=== PATIENT | female | born 1985 | race Caucasian/White ===

== ENCOUNTER → 2017-10-16 | Outpatient (CLI) | payer OTHER ==
[2017-10-16 12:23] LABS: Basophils # (A) 0.1 k/uL (0-0.2); Basophils % (A) 0 %; Eosinophils # (A) 0.1 k/uL (0-0.7); Eosinophils % (A) 1 %; HGB 13.1 gm/dL (11.4-16.0); Lymphocytes % (A) 32 %; MCH 28.8 pg (25.0-35.0); MCHC 30.5 g/dL (31.0-37.0); MCV 94.6 fL (80.0-100.0); Mean Platelet Volume 6.4; Monocytes # (A) 0.5 k/uL (0-1.0); Monocytes % (A) 4 %; Neutrophils # (A) 7.7 k/uL (1.3-7.7); Neutrophils % (A) 61 %; Platelet Count 477 k/uL (150-450); RBC 4.54 m/uL (3.80-5.40); RDW 13.3 % (11.5-15.5); WBC 12.6 k/uL (3.8-10.6)
[2017-10-16 12:27] LABS: ALT 28 U/L (9-52); AST 17 U/L (14-36); Alkaline Phosphatase 84 U/L (38-126); Anion Gap 10 mmol/L; Blood Urea Nitrogen 18 mg/dL (7-17); Calcium 9.4 mg/dL (8.4-10.2); Carbon Dioxide 28 mmol/L (22-30); Chloride 102 mmol/L (98-107); Cholesterol 210 mg/dL (<200); Glucose 76 mg/dL (74-99); HDL Cholesterol 47 mg/dL (40-60); LDL Cholesterol,Calculated 142 mg/dL (0-99); Potassium 4.8 mmol/L (3.5-5.1); Sodium 140 mmol/L (137-145); Total Bilirubin 0.4 mg/dL (0.2-1.3); Total Protein 7.2 g/dL (6.3-8.2); Triglycerides 103 mg/dL (<150)
[2017-10-16 12:43] LABS: T4, Free (Free Thyroxine) 0.77 ng/dL (0.78-2.19)
== END | disposition home or self-care (01) ==
LOC: LABWHC1 11:27
PROVIDERS: ATTEND Nurse Practitioner Primary Care
DX: Z00.01 Encounter for general adult medical examination with abnormal findings (principal); E03.9 Hypothyroidism, unspecified; E55.9 Vitamin D deficiency, unspecified
CPT/HCPCS: 36415; 80053; 80061; 82306; 84439; 84443; 84481; 85025

== ENCOUNTER 2017-10-26 19:37 | Emergency (ER) | payer OTHER ==
[2017-10-26 20:06] VITALS: RESP 18; TEMP 98.4
[2017-10-26 20:36] LABS: Basophils % (A) 0 %; Eosinophils % (A) 0 %; HCT 39.2 % (34.0-46.0); HGB 12.7 gm/dL (11.4-16.0); Lymphocytes % (A) 10 %; MCH 29.4 pg (25.0-35.0); MCHC 32.2 g/dL (31.0-37.0); MCV 91.2 fL (80.0-100.0); Mean Platelet Volume 6.6; Monocytes # (A) 0.3 k/uL (0-1.0); Monocytes % (A) 2 %; Neutrophils # (A) 9.2 k/uL (1.3-7.7); Neutrophils % (A) 87 %; Platelet Count 416 k/uL (150-450); RDW 13.9 % (11.5-15.5); WBC 10.6 k/uL (3.8-10.6)
[2017-10-26 20:47] LABS: ALT 34 U/L (9-52); AST 25 U/L (14-36); Albumin 4.1 g/dL (3.5-5.0); Alkaline Phosphatase 96 U/L (38-126); Amylase 49 U/L (30-110); Anion Gap 14 mmol/L; Blood Urea Nitrogen 15 mg/dL (7-17); Calcium 9.2 mg/dL (8.4-10.2); Carbon Dioxide 22 mmol/L (22-30); Chloride 106 mmol/L (98-107); Glucose 105 mg/dL (74-99); Lipase 47 U/L (23-300); Potassium 4.1 mmol/L (3.5-5.1); Sodium 142 mmol/L (137-145); Total Bilirubin 0.4 mg/dL (0.2-1.3); Total Protein 7.1 g/dL (6.3-8.2)
[2017-10-26] MEDS ORDERED: ONDANSETRON 4 MG/2 ML VIAL IVP STA (22:01)
[2017-10-26] MEDS ORDERED: SODIUM CHLORIDE 0.9% 1,000 ML IV ONE (22:01)
[2017-10-26 22:26] LABS: Amorphous Sediment,Urine Rare /hpf; Appearance,Urine Cloudy (Clear); Bilirubin,Urine Negative (Negative); Blood,Urine Negative (Negative); Color,Urine Yellow; Glucose,Urine (UA) Negative (Negative); Ketones,Urine 2+ (Negative); Leukocyte Esterase,Urine Trace (Negative); Mucus,Urine Many /hpf; Nitrite,Urine Negative (Negative); PH, Urine 5.5 (5.0-8.0); Protein,Urine 1+ (Negative); RBC,Urine 2 /hpf (0-5); Specific Gravity,Urine 1.032 (1.001-1.035); Squamous Epithelial Cell,Urine 20 /hpf (0-4); WBC,Urine 7 /hpf (0-5)
--- NOTE | 2017-10-26 23:57 | XR ---
EXAMINATION TYPE: XR abdomen acute w cxr DATE OF EXAM: 10/26/2017 COMPARISON: NONE HISTORY: Nausea and vomiting TECHNIQUE: 4 views FINDINGS: Heart and mediastinum are normal. Lungs are clear. Diaphragm is normal. Bowel gas pattern is normal. There is no sign of intestinal obstruction or pneumoperitoneum. Fecal pattern is normal. There are no pathologic calcifications over the kidneys. IMPRESSION: Nonacute abdomen.
[2017-10-27] MEDS ORDERED: ONDANSETRON ODT 4 MG TAB PO STA (00:19)
--- NOTE | 2017-10-27 00:19 | ED ---
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 Denies any headaches no chest pain or shortness of breath does have some abdominal cramps no frequency urgency dysuria he is system is unremarkable otherwise - Related Data Home Medications Medication Instructions Recorded Confirmed FLUoxetine HCL [PROzac] 20 mg PO DAILY 10/26/17 10/26/17 Previous Rx's Medication Instructions Recorded Metoclopramide [Reglan] 10 mg PO ACHS #12 tab 10/27/17 Allergies Allergy/AdvReac Type Severity Reaction Status Date / Time acetaminophen [From Vicodin] AdvReac Vomiting Verified 10/26/17 22:10 hydrocodone [From Vicodin] AdvReac Vomiting Verified 10/26/17 22:10 Review of Systems ROS Statement: Those systems with pertinent positive or pertinent negative responses have been documented in the HPI. ROS Other: All systems not noted in ROS Statement are negative. Past Medical History Additional Past Medical History / Comment(s): hypothyroidism, Migraine History of Any Multi-Drug Resistant Organisms: None Reported Past Surgical History: No Surgical Hx Reported Past Psychological History: Anxiety Smoking Status: Current every day smoker Past Alcohol Use History: Rare Past Drug Use History: None Reported General Exam - General Exam Comments Initial Comments: General: The patient is awake and alert, in no distress, and does not appear acutely ill. Skin: Skin is warm and dry and no rashes or lesions are noted. Eye: Pupils are equal, round and reactive to light, extra-ocular movements are intact; there is normal conjunctiva bilaterally. Ears, nose, mouth and throat: There are moist mucous membranes and no oral lesions. Neck: The neck is supple, there is no tenderness or JVD. Cardiovascular: There is a regular rate and rhythm. No murmur, rub or gallop is appreciated. Respiratory: To auscultation bilateral, no wheezing no rhonchi no distress respiratory ronquillo noticed Gastrointestinal: Soft nontender positive bowel sounds no guarding no rebounds Back: There is no tenderness to palpation in the midline. There is no obvious deformity. Musculoskeletal: Normal ROM, no tenderness, There is no pedal edema. There is no calf tenderness or swelling. No cords were appreciated. Neurological: CN II-XII intact, Cranial nerves III through XII are intact. There are no obvious motor or sensory deficits. Coordination appears grossly intact. Speech is normal. Psychiatric: Cooperative, appropriate mood & affect, normal judgment. Limitations: no limitations Course Vital Signs 10/26/17 20:04 Temperature 98.4 F Pulse Rate 96 Respiratory 18 Rate Blood Pressure 107/61 O2 Sat by Pulse 96 Oximetry She is reassessed at term 12:15, CBC, compressive metabolic mom metabolic panel is unremarkable imaging of the abdomen is also unremarkable, she feels better she had a 2 L of fluids she feels hungry she wanted try fluid and she was to go home Medical Decision Making - Lab Data Result diagrams: 10/26/17 20:21 10/26/17 20:21 Lab Results 10/26/17 10/26/17 10/26/17 Range/Units 20:21 20:21 22:11 WBC 10.6 (3.8-10.6) k/uL RBC 4.30 (3.80-5.40) m/uL Hgb 12.7 (11.4-16.0) gm/dL Hct 39.2 (34.0-46.0) % MCV 91.2 (80.0-100.0) fL MCH 29.4 (25.0-35.0) pg MCHC 32.2 (31.0-37.0) g/dL RDW 13.9 (11.5-15.5) % Plt Count 416 (150-450) k/uL Neutrophils % 87 % Lymphocytes % 10 % Monocytes % 2 % Eosinophils % 0 % Basophils % 0 % Neutrophils # 9.2 H (1.3-7.7) k/uL Lymphocytes # 1.0 (1.0-4.8) k/uL Monocytes # 0.3 (0-1.0) k/uL Eosinophils # 0.0 (0-0.7) k/uL Basophils # 0.0 (0-0.2) k/uL Sodium 142 (137-145) mmol/L Potassium 4.1 (3.5-5.1) mmol/L Chloride 106 (98-107) mmol/L Carbon Dioxide 22 (22-30) mmol/L Anion Gap 14 mmol/L BUN 15 (7-17) mg/dL Creatinine 0.66 (0.52-1.04) mg/dL Est GFR (CKD-EPI)AfAm >90 (>60 ml/min/1.73 sqM) Est GFR (CKD-EPI)NonAf >90 (>60 ml/min/1.73 sqM) Glucose 105 H (74-99) mg/dL Calcium 9.2 (8.4-10.2) mg/dL Total Bilirubin 0.4 (0.2-1.3) mg/dL AST 25 (14-36) U/L ALT 34 (9-52) U/L Alkaline Phosphatase 96 (38-126) U/L Total Protein 7.1 (6.3-8.2) g/dL Albumin 4.1 (3.5-5.0) g/dL Amylase 49 (30-110) U/L Lipase 47 (23-300) U/L Urine Color Urine Appearance (Clear) Urine pH (5.0-8.0) Ur Specific [place] (1.001-1.035) Urine Protein (Negative) Urine Glucose (UA) (Negative) Urine Ketones (Negative) Urine Blood (Negative) Urine Nitrite (Negative) Urine Bilirubin (Negative) Urine Urobilinogen (<2.0) mg/dL Ur Leukocyte Esterase (Negative) Urine RBC (0-5) /hpf Urine WBC (0-5) /hpf Ur Squamous Epith Cells (0-4) /hpf Amorphous Sediment (None) /hpf Urine Mucus (None) /hpf Urine HCG, Qual Not Detected (Not Detectd) 10/26/17 Range/Units 22:11 WBC (3.8-10.6) k/uL RBC (3.80-5.40) m/uL Hgb (11.4-16.0) gm/dL Hct (34.0-46.0) % MCV (80.0-100.0) fL MCH (25.0-35.0) pg MCHC (31.0-37.0) g/dL RDW (11.5-15.5) % Plt Count (150-450) k/uL Neutrophils % % Lymphocytes % % Monocytes % % Eosinophils % % Basophils % % Neutrophils # (1.3-7.7) k/uL Lymphocytes # (1.0-4.8) k/uL Monocytes # (0-1.0) k/uL Eosinophils # (0-0.7) k/uL Basophils # (0-0.2) k/uL Sodium (137-145) mmol/L Potassium (3.5-5.1) mmol/L Chloride (98-107) mmol/L Carbon Dioxide (22-30) mmol/L Anion Gap mmol/L BUN (7-17) mg/dL Creatinine (0.52-1.04) mg/dL Est GFR (CKD-EPI)AfAm (>60 ml/min/1.73 sqM) Est GFR (CKD-EPI)NonAf (>60 ml/min/1.73 sqM) Glucose (74-99) mg/dL Calcium (8.4-10.2) mg/dL Total Bilirubin (0.2-1.3) mg/dL AST (14-36) U/L ALT (9-52) U/L Alkaline Phosphatase (38-126) U/L Total Protein (6.3-8.2) g/dL Albumin (3.5-5.0) g/dL Amylase (30-110) U/L Lipase (23-300) U/L Urine Color Yellow Urine Appearance Cloudy H (Clear) Urine pH 5.5 (5.0-8.0) Ur Specific [place] 1.032 (1.001-1.035) Urine Protein 1+ H (Negative) Urine Glucose (UA) Negative (Negative) Urine Ketones 2+ H (Negative) Urine Blood Negative (Negative) Urine Nitrite Negative (Negative) Urine Bilirubin Negative (Negative) Urine Urobilinogen 2.0 (<2.0) mg/dL Ur Leukocyte Esterase Trace H (Negative) Urine RBC 2 (0-5) /hpf Urine WBC 7 H (0-5) /hpf Ur Squamous Epith Cells 20 H (0-4) /hpf Amorphous Sediment Rare H (None) /hpf Urine Mucus Many H (None) /hpf Urine HCG, Qual (Not Detectd) Disposition Clinical Impression: Gastroenteritis Disposition: HOME SELF-CARE Condition: Good Instructions: Acute Nausea and Vomiting (ED) Prescriptions: Metoclopramide [Reglan] 10 mg PO ACHS #12 tab Referrals: Malini Martinez MD [Primary Care Provider] - 1-2 days
[2017-10-27 00:25] VITALS: BP 122/60; PULSE 75
== END 2017-10-27 01:14 | disposition home or self-care (01) ==
LOC: EC 19:37
DX: K52.9 Noninfective gastroenteritis and colitis, unspecified (principal); F41.9 Anxiety disorder, unspecified; F17.200 Nicotine dependence, unspecified, uncomplicated; Z79.899 Other long term (current) drug therapy; Z88.5 Allergy status to narcotic agent
CPT/HCPCS: 36415; 80053; 82150; 83690; 85025; 81001; 81025; 74022; 99284; 96374; 96361 ×3; J2405

== ENCOUNTER → 2018-01-28 | Outpatient (CLI) | payer OTHER ==
[2018-01-28 15:31] LABS: T4, Free (Free Thyroxine) 0.82 ng/dL (0.78-2.19)
== END | disposition home or self-care (01) ==
LOC: LABWHC1 14:30
PROVIDERS: ATTEND Nurse Practitioner Primary Care
DX: E03.9 Hypothyroidism, unspecified (principal)
CPT/HCPCS: 36415; 82306; 84439; 84443; 84481

== ENCOUNTER 2019-05-29 14:46 | Emergency (ER) | payer OTHER ==
[2019-05-29 15:06] VITALS: RESP 16; TEMP 97.9
[2019-05-29] MEDS ORDERED: KETOROLAC 30 MG/ML 1 ML VIAL IVP STA (15:55)
[2019-05-29] MEDS ORDERED: ONDANSETRON 4 MG/2 ML VIAL IVP STA (15:55)
[2019-05-29] MEDS ORDERED: diphenhydrAMINE 50 MG/ML 1 ML VIAL IVP STA (15:55)
[2019-05-29] MEDS ORDERED: SODIUM CHLORIDE 0.9% 1,000 ML IV STA (15:56)
--- NOTE | 2019-05-29 16:40 | ED ---
Headache HPI - General Chief Complaint: Headache Stated Complaint: Headache Time Seen by Provider: 05/29/19 15:39 Mode of arrival: ambulatory Limitations: no limitations - History of Present Illness Initial Comments: Patient is a 34-year-old female presenting to emergency Department with complaints of migraine 5 days. Patient has history of migraines and states sometimes they improve with Excedrin however sometimes she does come to the ER for medication. Patient states she has been trying to take Excedrin at home without relief of symptoms. Patient developing nausea yesterday. Patient denies fever, chills, vomiting, diarrhea. Patient denies blurry vision. Admits to photophobia. Patient states this migraine feels similar to her past migraines. Patient denies any trauma or falls. Patient has no other complaints at this time. Upon arrival to ER, vital signs are stable. - Related Data Home Medications Medication Instructions Recorded Confirmed Aspirin/Acetaminophen/Caffeine 1 - 2 tab PO DAILY PRN 05/29/19 05/29/19 [Excedrin Migraine Caplet] FLUoxetine HCL 40 mg PO DAILY 05/29/19 05/29/19 Allergies Allergy/AdvReac Type Severity Reaction Status Date / Time acetaminophen [From Vicodin] AdvReac Vomiting Verified 05/29/19 15:36 hydrocodone [From Vicodin] AdvReac Vomiting Verified 05/29/19 15:36 Review of Systems ROS Statement: Those systems with pertinent positive or pertinent negative responses have been documented in the HPI. ROS Other: All systems not noted in ROS Statement are negative. Past Medical History Additional Past Medical History / Comment(s): hypothyroidism, Migraine History of Any Multi-Drug Resistant Organisms: None Reported Past Surgical History: No Surgical Hx Reported Past Psychological History: Anxiety Smoking Status: Former smoker Past Alcohol Use History: Rare Past Drug Use History: None Reported General Exam - General Exam Comments Initial Comments: GENERAL: Well-appearing, well-nourished and in no acute distress. HEAD: Atraumatic, normocephalic. EYES: Pupils equal round and reactive to light, extraocular movements intact, sclera anicteric, conjunctiva are normal. Positive photophobia ENT: TMs normal, nares patent, oropharynx clear without exudates. Moist mucous membranes. NECK: Normal range of motion, supple without lymphadenopathy or JVD. LUNGS: Breath sounds clear to auscultation bilaterally and equal. No wheezes rales or rhonchi. HEART: Regular rate and rhythm without murmurs, rubs or gallops. ABDOMEN: Soft, nontender, normoactive bowel sounds. No guarding, no rebound. No masses appreciated. : Deferred EXTREMITIES: Normal range of motion, no pitting or edema. No clubbing or cyanosis. NEUROLOGICAL: Cranial nerves II through XII grossly intact. Normal speech, normal gait. PSYCH: Normal mood, normal affect. SKIN: Warm, Dry, normal turgor, no rashes or lesions noted. Limitations: no limitations Course Vital Signs 05/29/19 15:02 Temperature 97.9 F Pulse Rate 77 Respiratory 16 Rate Blood Pressure 124/80 O2 Sat by Pulse 98 Oximetry Medical Decision Making - Medical Decision Making Patient is a 34-year-old female presenting with a migraine 5 days. Patient has history of migraines and this is similar nature. No alarm symptoms. Patient was given Toradol, Zofran, Benadryl and a liter of fluids. Patient reports improvement in symptoms and is requesting to go home. Patient will follow up with her PCP if symptoms persist. Patient stable for discharge at this time. Return parameters were discussed with the patient she verbalized understanding. Case discussed with Dr. Ramos. Disposition Clinical Impression: Migraine headache Disposition: HOME SELF-CARE Condition: Stable Instructions (If sedation given, give patient instructions): Acute Headache (ED) Additional Instructions: Please return to the Emergency Department if symptoms worsen or any other concerns. Continue to increase fluid intake. Follow-up with PCP as needed. Is patient prescribed a controlled substance at d/c from ED?: No Referrals: None,Stated [Primary Care Provider] - 1-2 days
[2019-05-29 17:36] VITALS: BP 134/76; PULSE 16
== END 2019-05-29 17:35 | disposition home or self-care (01) ==
LOC: EC 14:46
DX: G43.909 Migraine, unspecified, not intractable, without status migrainosus (principal); F41.9 Anxiety disorder, unspecified; Z87.891 Personal history of nicotine dependence; Z88.5 Allergy status to narcotic agent; Z88.6 Allergy status to analgesic agent; Z79.899 Other long term (current) drug therapy
CPT/HCPCS: 99283; 96374; 96375 ×2; 96361; J1200; J2405; J1885

== ENCOUNTER → 2019-12-19 | Outpatient (CLI) | payer OTHER ==
--- NOTE | 2019-12-20 07:58 | MM ---
Reason for exam: clinical finding. Baseline mammogram. History: Family history of breast cancer in maternal grandmother. Indicated problem(s): pain in the right breast. Physical Findings: Nurse did not find any significant physical abnormalities on exam. MG 3D Diag Mammo W/Cad LAYNE Bilateral CC, MLO, and XCCL view(s) were taken. The breast tissue is heterogeneously dense. This may lower the sensitivity of mammography. No suspicious abnormality. Right intramammary lymph node with a fatty notch seen. These results were verbally communicated with the patient and result sheet given to the patient on 12/19/19. ASSESSMENT: Incomplete: need additional imaging evaluation, BI-RAD 0 RECOMMENDATION: Ultrasound of the right breast. (area of pain)
--- NOTE | 2019-12-20 08:00 | USB ---
Reason for exam: additional evaluation requested from abnormal screening. History: Family history of breast cancer in maternal grandmother. US Breast Limited RT Technologist: Christy Tobar Right limited breast ultrasound including focal area of concern, retroareolar and axilla demonstrates retroareolar ducts at 9 o'clock and a 1.0 x 0.8 x 0.6cm oval lymph nodes as seen on mammogram, nonenlarged at 9 o'clock. These results were verbally communicated with the patient and result sheet given to the patient on 12/19/19. ASSESSMENT: Benign, BI-RAD 2 RECOMMENDATION: Routine screening mammogram of both breasts at age 40. (or sooner if clinically indicated) Manage on a clinical basis with regard to right breast pain.
== END | disposition home or self-care (01) ==
LOC: RADMAMWWP 08:59
PROVIDERS: ATTEND Obstetrics & Gynecology
DX: R92.8 Other abnormal and inconclusive findings on diagnostic imaging of breast (principal); N64.4 Mastodynia
CPT/HCPCS: 77066; 76642; G0279; 77062

== ENCOUNTER → 2020-01-15 | Outpatient (CLI) | payer OTHER ==
--- NOTE | 2020-01-15 15:02 | US ---
EXAMINATION TYPE: US thyroid st tissue head/neck DATE OF EXAM: 01/15/2020 COMPARISON: NONE CLINICAL HISTORY: 34-year-old female E04.1 Thyroid nodule.Hypothyroidism on meds for years. TECHNIQUE: Multiple sonographic images of the thyroid gland are obtained. FINDINGS: GLAND SIZE: Right Lobe: 6.3 x 2.5 x 2.1 cm Overall Parenchyma: heterogenous Left Lobe: 5.9 x 2.3 x 2.5 cm Overall Parenchyma: heterogeneous Isthmus Thickness: 1.1 cm NODULES RIGHT: # of nodules measured on right: 0 LEFT: # of nodules measured on left: 0 ISTHMUS: # of nodules measured in the isthmus: 0 Nodule from previous not seen on today's study. Bilateral neck scanned, no evidence of lymphadenopathy. IMPRESSION: Thyromegaly with very heterogeneous glandular parenchyma. Given the extensive heterogeneity, no discr ete nodule is clearly identified. The previously seen 9 mm isthmic nodule is not reproduced on the pr esent exam.
[2020-01-15 15:48] LABS: T4, Free (Free Thyroxine) 0.81 ng/dL (0.78-2.19)
== END | disposition home or self-care (01) ==
LOC: RADUSWWP 14:20
PROVIDERS: ATTEND Obstetrics & Gynecology
DX: E01.0 Iodine-deficiency related diffuse (endemic) goiter (principal); Z13.29 Encounter for screening for other suspected endocrine disorder
CPT/HCPCS: 76536; 84439; 84443; 84479

== ENCOUNTER 2020-06-06 20:13 | Emergency (ER) | payer OTHER ==
[2020-06-06 20:21] VITALS: RESP 18
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
[2020-06-06 22:11] VITALS: BP 137/67; PULSE 77; TEMP 98
== END 2020-06-06 22:11 | disposition home or self-care (01) ==
LOC: EC 20:13
DX: S13.9XXA Sprain of joints and ligaments of unspecified parts of neck, initial encounter (principal); M25.512 Pain in left shoulder; M54.9 Dorsalgia, unspecified; G43.909 Migraine, unspecified, not intractable, without status migrainosus; F41.9 Anxiety disorder, unspecified; Z79.899 Other long term (current) drug therapy; Z88.6 Allergy status to analgesic agent; Z88.5 Allergy status to narcotic agent; V59.9XXA Occupant (driver) (passenger) of pick-up truck or van injured in unspecified traffic accident, initial encounter; Y92.410 Unspecified street and highway as the place of occurrence of the external cause
CPT/HCPCS: 71046; 72050; 72072; 99284

== ENCOUNTER 2023-04-15 15:17 | Emergency (ER) | payer OTHER ==
[2023-04-15] MEDS ORDERED: PANTOPRAZOLE 40 MG/10 ML VIAL IVP STA (15:30)
[2023-04-15] MEDS ORDERED: ONDANSETRON 4 MG/2 ML VIAL IVP STA (15:30)
[2023-04-15] MEDS ORDERED: SODIUM CHLORIDE 0.9% 1,000 ML IV STA (15:30)
--- NOTE | 2023-04-15 15:41 | ED ---
General Adult HPI - General Stated complaint: ABDOMINAL PAIN Time Seen by Provider: 04/15/23 15:25 Source: patient, RN notes reviewed, old records reviewed - History of Present Illness Initial comments: Patient is a 38-year-old female with past medical history for thyroid dysfunction and presents emergency Department complaining of sudden onset abdominal pain. States it is epigastric in nature with some radiation over to the left side of her upper abdomen and on the left flank. States she has not had these pains before. No one else has this pain. Pain started approximately an hour and half prior to arrival. Nurses nausea but no emesis. Denies any diarrhea or constipation. Denies any vaginal discharge or bleeding. Denies any urinary complaints. Patient does endorse not having a period for the last 2 weeks. Is uncertain if she is . Denies any fevers, chills, cough, chest pain. Has no other acute complaints at this time. Patient was given fentanyl by EMS on the way here. Presents for further evaluation. No history of abdominal surgeries. - Related Data Home Medications Medication Instructions Recorded Confirmed Ibuprofen [Motrin] 600 mg PO Q8HR PRN 04/15/23 04/15/23 Levothyroxine Sodium [Synthroid] 175 mcg PO DAILY 04/15/23 04/15/23 PARoxetine HCL 40 mg PO DAILY 04/15/23 04/15/23 SUMAtriptan succinate [Imitrex] 50 mg PO BID PRN 04/15/23 04/15/23 busPIRone HCL [Buspirone HCl] 15 mg PO BID 04/15/23 04/15/23 Allergies Allergy/AdvReac Type Severity Reaction Status Date / Time acetaminophen [From Vicodin] AdvReac Vomiting Verified 04/15/23 15:43 hydrocodone [From Vicodin] AdvReac Vomiting Verified 04/15/23 15:43 Review of Systems ROS Statement: Those systems with pertinent positive or pertinent negative responses have been documented in the HPI. Review of Systems: CONST: Denies fever EYES: Denies blurry vision ENT: Denies nasal congestion C/V: Denies Chest pain RESP: Denies shortness of breath GI: Endorses abdominal pain : Denies dysuria SKIN: Denies rash. MSK: Denies joint pain. NEURO: Denies headache ROS Other: All systems not noted in ROS Statement are negative. Past Medical History Additional Past Medical History / Comment(s): hypothyroidism, Migraine History of Any Multi-Drug Resistant Organisms: None Reported Past Surgical History: No Surgical Hx Reported Past Psychological History: Anxiety Past Alcohol Use History: Rare Past Drug Use History: None Reported General Exam - General Exam Comments Initial Comments: General: Appears in no acute distress. HEAD: Normal with no signs of head trauma. EYES: PERRLA, EOMI, conjunctiva normal, no discharge. ENT: Hearing grossly intact, normal oropharynx. RESPIRATORY: Clear breath sounds bilaterally. No wheezes, rales, or rhonchi. C/V: Regular rate and rhythm. S1 and S2 auscultated, no edema, peripheral pulses 2+ and intact throughout ABD: Abdomen soft, nondistended. Tender to palpation mildly in the epigastric and left upper quadrant with some left flank tenderness as well. No CVA tenderness to percussion. No guarding. No peritoneal signs. No rebound tenderness. EXT: Normal range of motion, no obvious deformity SKIN: No rashes or lesions observed on exposed skin. NEURO: Alert and oriented 4. Course Vital Signs 04/15/23 04/15/23 04/15/23 15:32 16:06 18:26 Temperature 98.3 F Pulse Rate 68 63 66 Respiratory 18 18 18 Rate Blood Pressure 113/74 113/74 131/83 O2 Sat by Pulse 98 99 98 Oximetry 04/15/23 19:27 Temperature Pulse Rate 66 Respiratory 18 Rate Blood Pressure 110/69 O2 Sat by Pulse 96 Oximetry Medical Decision Making - Medical Decision Making Was pt. sent in by a medical professional or institution (, PA, RODENT CONTROL WORKER, urgent care, hospital, or alf...) When possible be specific @ -No Did you speak to anyone other than the patient for history (EMS, parent, family, police, friend...)? What history was obtained from this source @ -No Did you review nursing and triage notes (agree or disagree)? Why? @ -I reviewed and agree with nursing and triage notes Were old charts reviewed (outside hosp., previous admission, EMS record, old EKG, old radiological studies, urgent care reports/EKG's, alf records)? Report findings @ -No old charts were reviewed Differential Diagnosis (chest pain, altered mental status, abdominal pain women, abdominal pain men, vaginal bleeding, weakness, fever, dyspnea, syncope, headache, dizziness, GI bleed, back pain, seizure, CVA, palpatations, mental health, musculoskeletal)? @ -Differential Abdominal Pain Women: Appendicitis, Cholecystitis, diverticulosis, ischemic bowel, pancreatitis, hepatitis, UTI, gastroenteritis, AAA, incarcerated hernia, bowel obstruction, co nstipation, inflammatory bowel, hepatitis, peptic ulcer disease, splenic infarction, perforated viscus, vulvitis, ovarian torsion, PID, kidney stone, placenta abruption, this is not meant to be an all-inclusive list EKG interpreted by me (3pts min.). @ -As above X-rays interpreted by me (1pt min.). @ -Chest x-ray reveals no obvious acute cardiopulmonary process. CT interpreted by me (1pt min.). @ - CT abdomen and pelvis reveals findings concerning for mesenteric colitis as well as uncomplicated cholelithiasis. U/S interpreted by me (1pt. min.). @ -Patient's abdominal ultrasound revealed uncomplicated cholelithiasis as well as no evidence of nephrolithiasis or ureterolithiasis. What testing was considered but not performed or refused? (CT, X-rays, U/S, labs)? Why? @ -None What meds were considered but not given or refused? Why? @ -Considered pain medications on initial evaluation however patient states pain is under control the medications provided by EMS. We will continue to monitor. eventually did readminister pain meds. Did you discuss the management of the patient with other professionals (professionals i.e. , PA, RODENT CONTROL WORKER, lab, RT, psych nurse, social service agency director, short piece handler, teacher, space operations officer, briefcase sewer)? Give summary @ -No Was smoking cessation discussed for >3mins.? @ -No Was critical care preformed (if so, how long)? @ -No Were there social determinants of health that impacted care today? How? (Homelessness, low income, unemployed, alcoholism, drug addiction, transportation, low edu. Level, literacy, decrease access to med. care, custodial, rehab)? @ -No Was there de-escalation of care discussed even if they declined (Discuss DNR or withdrawal of care, Hospice)? DNR status @ -No What co-morbidities impacted this encounter? (DM, HTN, Smoking, COPD, CAD, Cancer, CVA, ARF, Chemo, Hep., AIDS, mental health diagnosis, sleep apnea, mo rbid obesity)? @ -None Was patient admitted / discharged? Hospital course, mention meds given and route, prescriptions, significant lab abnormalities, going to OR and other pertinent info. @ -Based on the patient's presentation and physical exam, patient is a 38-year-old female who presents with sudden onset epigastric and left-sided abdominal pain. Nausea associated with it. Primary concern is for intra- abdominal etiology. Screening EKG will be obtained. She also missed her period. We will obtain abdominal laboratory studies. Patient does not require pain medications at this time, and declines them.. She will receive an IV fluid bolus as well as Zofran and Protonix. We will also obtain a chest x-ray as well as ultrasounds of the gallbladder as well as kidneys to begin. Patient was in agreement this plan. Vital signs within acceptable limits. Patient's imaging with ultrasound x-ray initially revealed uncomplicated cholelithiasis with no other findings. Labs returned remarkable for mild leukocytosis of 12 which is likely reactive. She is not . Urine shows blood but no other findings. Remainder the labs within acceptable limits. On reevaluation come patient's son pain. She was administered fentanyl and we discussed we will obtain CT imaging at this time. CT returned showing mesenteric panniculitis. I discussed the results with the patient. Treatment is supportive and follow-up. She'll be given GI to follow up with as well as her PCP. She was in agreement with this plan. She'll be provided with starter packs for Zofran and Tylenol threes for home. I instructed the patient to follow up with their PCP in the next 1-3 days. I provided contact information for follow up with gastroenterology. I explained that the patient should return to the emergency department if they experience any worsening symptoms. Strict return precautions were discussed with the shubham love. The patient expressed understanding of these instructions. I answered all questions that the patient had. The patient was discharged home in fair condition with their prescriptions and follow up information. Undiagnosed new problem with uncertain prognosis? @ -No Drug Therapy requiring intensive monitoring for toxicity (Heparin, Nitro, In sulin, Cardizem)? @ -No Were any procedures done? @ -No - Lab Data Result diagrams: 04/15/23 15:30 04/15/23 15:30 Lab Results 04/15/23 04/15/23 04/15/23 Range/Units 15:30 15:30 15:30 WBC 12.7 H (3.8-10.6) k/uL RBC 4.12 (3.80-5.40) m/uL Hgb 12.4 (11.4-16.0) gm/dL Hct 38.2 (34.0-46.0) % MCV 92.6 (80.0-100.0) fL MCH 30.1 (25.0-35.0) pg MCHC 32.5 (31.0-37.0) g/dL RDW 14.0 (11.5-15.5) % Plt Count 433 (150-450) k/uL MPV 7.4 Neutrophils % 76 % Lymphocytes % 18 % Monocytes % 3 % Eosinophils % 1 % Basophils % 0 % Neutrophils # 9.7 H (1.3-7.7) k/uL Lymphocytes # 2.4 (1.0-4.8) k/uL Monocytes # 0.4 (0-1.0) k/uL Eosinophils # 0.1 (0-0.7) k/uL Basophils # 0.0 (0-0.2) k/uL PT (9.0-12.0) sec INR (<1.2) APTT (22.0-30.0) sec Sodium 137 (137-145) mmol/L Potassium 4.3 (3.5-5.1) mmol/L Chloride 103 (98-107) mmol/L Carbon Dioxide 25 (22-30) mmol/L Anion Gap 9 mmol/L BUN 12 (7-17) mg/dL Creatinine 0.62 (0.52-1.04) mg/dL Est GFR (CKD-EPI)AfAm >90 (>60 ml/min/1.73 sqM) Est GFR (CKD-EPI)NonAf >90 (>60 ml/min/1.73 sqM) Glucose 89 (74-99) mg/dL Plasma Lactic Acid Scooby 1.8 (0.7-2.0) mmol/L Calcium 9.0 (8.4-10.2) mg/dL Total Bilirubin 0.4 (0.2-1.3) mg/dL AST 39 H (14-36) U/L ALT 26 (4-34) U/L Alkaline Phosphatase 109 (38-126) U/L Total Protein 7.4 (6.3-8.2) g/dL Albumin 3.9 (3.5-5.0) g/dL Amylase 60 (30-110) U/L Lipase 182 (23-300) U/L HCG, Qual Not Detected Urine Color Urine Appearance (Clear) Urine pH (5.0-8.0) Ur Specific [place] (1.001-1.035) Urine Protein (Negative) Urine Glucose (UA) (Negative) Urine Ketones (Negative) Urine Blood (Negative) Urine Nitrite (Negative) Urine Bilirubin (Negative) Urine Urobilinogen (<2.0) mg/dL Ur Leukocyte Esterase (Negative) Urine RBC (0-5) /hpf Urine WBC (0-5) /hpf Ur Squamous Epith Cells (0-4) /hpf Urine Mucus (None) /hpf 04/15/23 04/15/23 Range/Units 15:51 16:45 WBC (3.8-10.6) k/uL RBC (3.80-5.40) m/uL Hgb (11.4-16.0) gm/dL Hct (34.0-46.0) % MCV (80.0-100.0) fL MCH (25.0-35.0) pg MCHC (31.0-37.0) g/dL RDW (11.5-15.5) % Plt Count (150-450) k/uL MPV Neutrophils % % Lymphocytes % % Monocytes % % Eosinophils % % Basophils % % Neutrophils # (1.3-7.7) k/uL Lymphocytes # (1.0-4.8) k/uL Monocytes # (0-1.0) k/uL Eosinophils # (0-0.7) k/uL Basophils # (0-0.2) k/uL PT 9.9 (9.0-12.0) sec INR 0.9 (<1.2) APTT 23.4 (22.0-30.0) sec Sodium (137-145) mmol/L Potassium (3.5-5.1) mmol/L Chloride (98-107) mmol/L Carbon Dioxide (22-30) mmol/L Anion Gap mmol/L BUN (7-17) mg/dL Creatinine (0.52-1.04) mg/dL Est GFR (CKD-EPI)AfAm (>60 ml/min/1.73 sqM) Est GFR (CKD-EPI)NonAf (>60 ml/min/1.73 sqM) Glucose (74-99) mg/dL Plasma Lactic Acid Scooby (0.7-2.0) mmol/L Calcium (8.4-10.2) mg/dL Total Bilirubin (0.2-1.3) mg/dL AST (14-36) U/L ALT (4-34) U/L Alkaline Phosphatase (38-126) U/L Total Protein (6.3-8.2) g/dL Albumin (3.5-5.0) g/dL Amylase (30-110) U/L Lipase (23-300) U/L HCG, Qual Urine Color Colorless Urine Appearance Clear (Clear) Urine pH 6.0 (5.0-8.0) Ur Specific [place] 1.017 (1.001-1.035) Urine Protein Negative (Negative) Urine Glucose (UA) Negative (Negative) Urine Ketones Negative (Negative) Urine Blood Large H (Negative) Urine Nitrite Negative (Negative) Urine Bilirubin Negative (Negative) Urine Urobilinogen <2.0 (<2.0) mg/dL Ur Leukocyte Esterase Negative (Negative) Urine RBC >182 H (0-5) /hpf Urine WBC 4 (0-5) /hpf Ur Squamous Epith Cells 1 (0-4) /hpf Urine Mucus Rare H (None) /hpf - EKG Data -: EKG Interpreted by Me EKG Comments: 12-lead Electrocardiogram Interpretation Note EKG was reviewed and interpreted by myself. 12-lead ECG performed at 1548 is interpreted by me as revealing normal sinus rhythm at a rate of 67 beats per minute. [place] is normal. [place] interval is 183 ms, QRS ration is 101 ms, QTC is 430 ms.. Isolated T-wave inversion in lead III with no reciprocal changes. There were no ST or T wave abnormalities to suggest myocardial ischemia or injury. R wave progression across the precordium was satisfactory. By my interpretation this EKG is non-diagnostic for acute ischemia. Disposition Clinical Impression: Mesenteric panniculitis Disposition: HOME SELF-CARE Condition: Fair Instructions (If sedation given, give patient instructions): Abdominal Pain (ED) Additional Instructions: You have Mesenteric Panniculitis on CT imaging. Follow up with GI or PCP. Symptomatic treatment with pain meds/hydration. Is patient prescribed a controlled substance at d/c from ED?: No Referrals: Rhoda Guzmán DO [REFERRING] - 1-2 days Lisa Beverly MD [STAFF PHYSICIAN] - 1-2 days Time of Disposition: 18:42
[2023-04-15 15:43] VITALS: RESP 18; TEMP 98.3
[2023-04-15 16:19] LABS: Basophils % (A) 0 %; Eosinophils # (A) 0.1 k/uL (0-0.7); Eosinophils % (A) 1 %; HCT 38.2 % (34.0-46.0); HGB 12.4 gm/dL (11.4-16.0); Lymphocytes # (A) 2.4 k/uL (1.0-4.8); Lymphocytes % (A) 18 %; MCH 30.1 pg (25.0-35.0); MCHC 32.5 g/dL (31.0-37.0); MCV 92.6 fL (80.0-100.0); Mean Platelet Volume 7.4; Monocytes # (A) 0.4 k/uL (0-1.0); Monocytes % (A) 3 %; Neutrophils # (A) 9.7 k/uL (1.3-7.7); Neutrophils % (A) 76 %; Platelet Count 433 k/uL (150-450); RBC 4.12 m/uL (3.80-5.40); WBC 12.7 k/uL (3.8-10.6)
--- NOTE | 2023-04-15 16:43 | US ---
EXAMINATION TYPE: US abd limited kidneys/bladder DATE OF EXAM: 04/15/2023 COMPARISON: NONE CLINICAL INDICATION: Female, 38 years old with history of abd pain, epigastric; LUQ pain TECHNIQUE: Multiple sonographic images of the right upper quadrant, bilateral kidneys, and bladder ar e obtained. FINDINGS: EXAM MEASUREMENTS: Liver Length: 19.8 cm Gallbladder Wall: 0.32 cm CBD: 0.57 cm Right Kidney: 11.9 x 5.1 x 5.7 cm Left Kidney: 13.6 x 6.3 x 7.4 cm Pancreas: Parts visualized appear wnl Liver: Heterogeneous and difficult to penetrate Gallbladder: Multiple gallstones visualized. Wall on upper limits of normal, but negative Newman's s ign CBD: Upper limits of normal Right Kidney: wnl Left Kidney: wnl Bladder: wnl Bilateral Jets Seen No Visualized portions of the pancreas unremarkable. The liver demonstrates heterogenous increased echot exture which is difficult to penetrate. No focal lesion identified. Cholelithiasis demonstrated with mild wall thickening. No pericholecystic fluid or positive sonographic Newman sign. Common bile duct is at the upper limits of normal. Both kidneys unremarkable without evidence of hydronephrosis, nephr olithiasis, or solid mass. The urinary bladder is unremarkable. Both ureteral jets are not identified . IMPRESSION: 1. No acute process. 2. Cholelithiasis without ultrasound evidence for acute cholecystitis. 3. Hepatic steatosis.
[2023-04-15 16:50] LABS: ALT 26 U/L (4-34); AST 39 U/L (14-36); African American GFR (CKD) >90 (>60 ml/min/1.73 sqM); Albumin 3.9 g/dL (3.5-5.0); Alkaline Phosphatase 109 U/L (38-126); Amylase 60 U/L (30-110); Anion Gap 9 mmol/L; Blood Urea Nitrogen 12 mg/dL (7-17); Carbon Dioxide 25 mmol/L (22-30); Chloride 103 mmol/L (98-107); Glucose 89 mg/dL (74-99); Lipase 182 U/L (23-300); Non-African American GFR(CKD) >90 (>60 ml/min/1.73 sqM); Potassium 4.3 mmol/L (3.5-5.1); Sodium 137 mmol/L (137-145); Total Bilirubin 0.4 mg/dL (0.2-1.3); Total Protein 7.4 g/dL (6.3-8.2)
[2023-04-15 17:30] LABS: HCG,Qualitative Serum Not Detected
[2023-04-15 17:40] LABS: Appearance,Urine Clear (Clear); Bilirubin,Urine Negative (Negative); Blood,Urine Large (Negative); Color,Urine Colorless; Glucose,Urine (UA) Negative (Negative); Ketones,Urine Negative (Negative); Leukocyte Esterase,Urine Negative (Negative); Mucus,Urine Rare /hpf; Nitrite,Urine Negative (Negative); Protein,Urine Negative (Negative); RBC,Urine >182 /hpf (0-5); Specific Gravity,Urine 1.017 (1.001-1.035); Squamous Epithelial Cell,Urine 1 /hpf (0-4); Urobilinogen,Urine <2.0 mg/dL (<2.0); WBC,Urine 4 /hpf (0-5)
[2023-04-15] MEDS ORDERED: fentaNYL (PF) 50 MCG/ML 2 ML AMP IVP STA (17:42)
[2023-04-15 17:47] LABS: INR 0.9 (<1.2); Partial Thromboplastin Time 23.4 sec (22.0-30.0); Prothrombin Time 9.9 sec (9.0-12.0)
--- NOTE | 2023-04-15 17:57 | XR ---
EXAMINATION TYPE: XR chest 2V DATE OF EXAM: 04/15/2023 5:53 PM COMPARISON: Chest radiographs from 06/06/2020 TECHNIQUE: XR chest 2V Frontal and lateral views of the chest. CLINICAL INDICATION:Female, 38 years old with history of abdominal pain; FINDINGS: Lungs/Pleura: There is no evidence of pleural effusion, focal consolidation, or pneumothorax. Pulmonary vascularity: Unremarkable. Heart/mediastinum: Cardiomediastinal silhouette is unremarkable. Musculoskeletal: No acute osseous pathology. IMPRESSION: No acute cardiopulmonary disease/process. No significant change from prior exam.
--- NOTE | 2023-04-15 18:15 | CT ---
EXAMINATION TYPE: CT abdomen pelvis w con CT DLP: 2623.8 mGycm, Automated exposure control for dose reduction was used. DATE OF EXAM: 04/15/2023 6:07 PM COMPARISON: Ultrasound of the same date CLINICAL INDICATION:Female, 38 years old with history of abd pain; upper abd pain, n/v. TECHNIQUE: Standard CT of the abdomen and pelvis following the administration of 100 cc of Isovue 3 00 IV contrast material. Coronal and sagittal reformats were performed. FINDINGS: LOWER CHEST: Posterior dependent subsegmental atelectasis is noted in the right lower lobe. ABDOMEN LIVER: Periportal edema identified. GALLBLADDER AND BILE DUCTS: Cholelithiasis. No biliary ductal dilatation. PANCREAS: Unremarkable. SPLEEN: Unremarkable. ADRENAL GLANDS: Unremarkable. KIDNEYS AND URETERS: No evidence of hydronephrosis or renal calculus. The kidneys enhance symmetrical ly. Contrast is demonstrated within both collecting systems on the delayed phase. PELVIS BLADDER: Unremarkable REPRODUCTIVE: Unremarkable. ABDOMEN & PELVIS STOMACH AND BOWEL: Stomach and duodenum are unremarkable. No focal bowel wall thickening. No evidence of bowel obstruction. PERITONEUM: No evidence of pneumoperitoneum or free fluid. Patchy stranding identified within the lef t mesentery. Compatible with migue mesentery sign. VASCULATURE: No evidence of aortic aneurysm. Few pelvic phleboliths. MUSCULOSKELETAL: No acute osseous abnormalities LYMPH NODES: No gross evidence for lymphadenopathy. SOFT TISSUE/ABDOMINAL WALL: Unremarkable IMPRESSION: 1. Nonspecific migue mesentery with etiologies including mesenteric panniculitis versus other etiolo gies. 2. Cholelithiasis. 3. Periportal edema which can be seen with aggressive hydration.
[2023-04-15 18:28] VITALS: PULSE 66
[2023-04-15] MEDS ORDERED: ACET/COD 300 MG/30 MG STARTER PACK 6 TAB BTL PO STA (19:05)
[2023-04-15] MEDS ORDERED: ONDANSETRON 4 MG ODT STARTER PACK 2 TAB BTL PO STA (19:05)
[2023-04-15 19:31] VITALS: BP 110/69
== END 2023-04-15 19:34 | disposition home or self-care (01) ==
LOC: EC 15:17
DX: K65.4 Sclerosing mesenteritis (principal); K76.0 Fatty (change of) liver, not elsewhere classified; K80.20 Calculus of gallbladder without cholecystitis without obstruction; E03.9 Hypothyroidism, unspecified; F41.9 Anxiety disorder, unspecified; Z79.899 Other long term (current) drug therapy; Z79.890 Hormone replacement therapy; Z88.6 Allergy status to analgesic agent; Z88.8 Allergy status to other drugs, medicaments and biological substances; Z88.5 Allergy status to narcotic agent
CPT/HCPCS: 36415; 93005; 80053; 82150; 83605; 83690; 85025; 85610; 85730; 81001; 84703; 71046; 76705; 76770; 74177; 99285; 96374; 96375 ×2; 96361; J2405; J3010; S0119; C9113; Q9967